=== PATIENT | female | born 1985 | race African-American/Black ===

== ENCOUNTER 2017-05-25 17:57 | Emergency (ER) | payer OTHER ==
[~2017-05-25] VITALS: Ht 157.5 cm; Wt 69.5 kg
[2017-05-25 18:03] VITALS: BP 161/97
== END 2017-05-25 19:40 | disposition left against medical advice (07) ==
LOC: ER 18:02
DX: R20.0 Anesthesia of skin (principal); Z53.29 Procedure and treatment not carried out because of patient's decision for other reasons